=== PATIENT | female | born 1950 | race Caucasian/White ===

== ENCOUNTER 2016-09-18 07:55 | Outpatient (CLI) | payer MEDICARE | END 2016-09-18 07:56 | disposition home or self-care (01) | DX: E83.52 Hypercalcemia (principal); M85.80 Other specified disorders of bone density and structure, unspecified site ==

== ENCOUNTER 2018-07-16 09:45 | Outpatient (CLI) | payer MEDICARE ==
--- NOTE | 2018-07-19 09:03 | Mammography Report ---
Reason: SCREENING MAMMO Procedure Date: 07/16/2018 Accession Number: [id number] / [id number] Procedure: BLUE - Screening Mammo w/[place] CPT Code: FULL RESULT: EXAM: Screening Mammo w/[place] DATE: 07/16/2018 10:12 AM CLINICAL HISTORY: Screening encounter. No reported risk factors. TECHNIQUE: Bilateral CC and MLO views were obtained. COMPARISON: 04/21/2016 through 01/16/2012. FINDINGS: The breasts demonstrate scattered fibroglandular densities bilaterally. There are coarse typically benign calcifications, left greater than right. 4.6 cm from the nipple in the upper central left breast best seen on the left MLO view is a developing focal asymmetry questionably with calcifications which comment to focus on slice 40 of the 3-D images. While tomographic images suggest the overall 2-D finding is at least partially due to soft tissue overlap, spot magnification views are required to clarify the finding of calcifications. No suspicious masses, clustered microcalcifications, or regions of architectural distortion are identified in the right breast. IMPRESSION: Incomplete examination RECOMMENDATION: Additional evaluation with spot magnification views of the left upper central breast and possibly ultrasound as above. BIRADS CATEGORY 0: Incomplete examination STANDARD QUALIFYING STATEMENTS: 1. This examination was not reviewed with the aid of Computer-Aided Detection (CAD). 2. A negative or benign imaging report should not preclude biopsy if clinically suspicious findings are present. 3. Dense breasts may obscure an underlying neoplasm. 4. This examination was reviewed with the aid of 3D breast imaging (tomosynthesis).
== END 2018-07-16 09:46 | disposition home or self-care (01) ==
LOC: DI 09:45
PROVIDERS: ATTEND Registered Nurse
DX: Z12.31 Encounter for screening mammogram for malignant neoplasm of breast (principal); R92.1 Mammographic calcification found on diagnostic imaging of breast
CPT/HCPCS: 77063; 77067

== ENCOUNTER 2018-07-16 09:50 | Outpatient (CLI) | payer MEDICARE ==
--- NOTE | 2018-07-19 09:37 | DEXA Report ---
Reason: OSTEOPENIA Procedure Date: 07/16/2018 Accession Number: [id number] / [id number] Procedure: DEX - Dexa Spine and/or Hip CPT Code: FULL RESULT: EXAM: Dexa Spine and/or Hip DATE: 07/16/2018 10:32 AM CLINICAL HISTORY: OSTEOPENIA TECHNIQUE: Dual energy x-ray absorptiometry (DXA) was performed on a [employer] System. Regions measured are the AP Spine, femoral neck, and if needed forearm. COMPARISON: 04/21/2016. In accordance with the International Society for Clinical Densitometry (ISCD) guidelines, data from previous exams may be reanalyzed using current recommendations and techniques. This is done to allow a more accurate basis for comparison with the current study. FINDINGS: The data for the lumbar spine is as follows: BMD (g/cm/cm) T-SCORE Z-SCORE REGION L1 1.010 -1.0 0.7 L2 0.986 -1.8 -0.1 L3 1.023 -1.5 0.2 L4 1.081 -1.0 0.7 TOTAL 1.029 -1.3 0.4 NOTE: All evaluable vertebrae are used for classification The data for the hip is as follows: BMD (g/cm/cm) T-SCORE Z-SCORE REGION Neck 0.851 -1.3 0.4 TOTAL 1.000 -0.1 1.4 NOTE: The femoral neck or total proximal femur, whichever is lowest, is used for classification. DXA RESULTS SUMMARY: Spine SCAN DATE AGE BMD CHANGE VS CHANGE VS PREVIOUS PREVIOUS % [birth year][age]16/2018 [age] 1.029 0.021 2.1 04/21/2016 [age] 1.008 * Denotes significant change at the 95% confidence level. Denotes dissimilar scan types or analysis methods. DXA RESULTS SUMMARY: Hip SCAN DATE AGE BMD CHANGE VS CHANGE VS PREVIOUS PREVIOUS % 07[birth year]16/2018 68.2 1.000 -0.015 -1.5 04/21/2016 66.0 1.015 * Denotes significant change at the 95% confidence level. Denotes dissimilar scan types or analysis methods. IMPRESSION: THE WHO CLASSIFICATION BASED ON THE INTERNATIONAL REFERENCE STANDARD IS OSTEOPENIA. THE FRACTURE RISK IS INCREASED. RECOMMENDATION: Patients with diagnosis of osteoporosis or osteopenia should have regular bone mineral density assessment. For those eligible for Medicare, routine testing is allowed once every 2 years. Testing frequency can be increased for patients who have rapidly progressing disease or for those who are receiving medical therapy to restore bone mass. COMMENT: World Health Organization (WHO) definitions for osteoporosis and osteopenia: NORMAL BMD: T-score at -1.0 or higher, fracture risk is low OSTEOPENIA BMD: T-score between -1.0 and -2.5, fracture risk is increased. OSTEOPOROSIS BMD: T-score at -2.5 or lower, fracture risk is high. National Osteoporosis Foundation recommends: 1. Obtain adequate dietary calcium (at least 1200 mg per day) and vitamin D (400-800 international units per day). 2. Participate, as appropriate, in regular weightbearing and muscle-strengthening exercise. 3. Avoid tobacco use and reduce alcohol and caffeine intake. 4. For more detailed information see the website at www.NOF.org.
== END 2018-07-16 09:51 | disposition home or self-care (01) ==
LOC: DI 09:50
PROVIDERS: ATTEND Registered Nurse
DX: M85.89 Other specified disorders of bone density and structure, multiple sites (principal)
CPT/HCPCS: 77080

== ENCOUNTER 2018-08-16 09:42 | Outpatient (CLI) | payer MEDICARE ==
--- NOTE | 2018-08-16 12:16 | Mammography Report ---
Reason: ABN MAMMO - LT SPEC VIEWS Procedure Date: 08/16/2018 Accession Number: [id number] / [id number] Procedure: BLUE - Diag Special Views Dig LT CPT Code: FULL RESULT: EXAM: Diag Special Views Dig LT DATE: 08/16/2018 10:57 AM CLINICAL HISTORY: Diagnostic mammogram. The patient is recalled from screening for a left breast developing focal asymmetry possibly with subtle calcifications. TECHNIQUE: Left ML, MLO magnified and CC magnified views were obtained. Focused left breast ultrasound was performed. COMPARISON: 07/08/2018 through 01/16/2012. FINDINGS: The breasts demonstrate scattered fibroglandular densities bilaterally. The focal asymmetry is identified as a well-circumscribed isodense ovoid 1 cm nodule best seen on left ML 3-D slice 23 5.8 cm from the nipple. Focused breast ultrasound of the same region identifies a 1.0 x 0.3 x 0.9 cm focal widening of locally mildly prominent normal breast ducts and no solid soft tissue component or other concerning ultrasound features. IMPRESSION: Benign findings RECOMMENDATION: Recommend routine annual Screening mammography unless otherwise clinically indicated. BIRADS CATEGORY 2: Benign findings STANDARD QUALIFYING STATEMENTS: 1. This examination was not reviewed with the aid of Computer-Aided Detection (CAD). 2. A negative or benign imaging report should not delay biopsy if clinically suspicious findings are present. Consider surgical consultation if warrented. More than 5% of cancers are not identified by imaging. 3. Dense breasts may obscure an underlying neoplasm. 4. This examination was reviewed with the aid of 3D imaging (tomography).
== END 2018-08-16 09:43 | disposition home or self-care (01) ==
LOC: DI 09:42
PROVIDERS: ATTEND Registered Nurse
DX: R92.2 Inconclusive mammogram (principal)
CPT/HCPCS: 76642

== ENCOUNTER 2018-12-10 08:36 | Outpatient (CLI) | payer MEDICARE ==
--- NOTE | 2018-12-10 11:00 | XRAY Report ---
Reason: ARTHRITIS OF SHOULDER REGION JOINT Procedure Date: 12/10/2018 Accession Number: [id number] / [id number] Procedure: XR - Shoulder 3 View RT CPT Code: FULL RESULT: EXAM: RIGHT SHOULDER RADIOGRAPHY EXAM DATE: 12/10/2018 09:01 AM. CLINICAL HISTORY: Arthritis of shoulder region joint. COMPARISON: None. TECHNIQUE: 3 views. FINDINGS: Bones: Normal. No fracture or bone lesion. Joints: The acromioclavicular joint and glenohumeral joint are normally located with mild degenerative changes of the AC joint. Soft tissues: The visualized hemithorax is unremarkable. No soft tissue swelling. IMPRESSION: AC joint predominant degenerative changes. RADIA
== END 2018-12-10 08:37 | disposition home or self-care (01) ==
LOC: DI 08:36
PROVIDERS: ATTEND Registered Nurse
DX: M19.011 Primary osteoarthritis, right shoulder (principal)

== ENCOUNTER 2019-01-10 08:50 | Outpatient (CLI) | payer MEDICARE ==
--- NOTE | 2019-01-10 18:43 | MRI Report ---
Reason: PAIN IN RIGHT SHOULDER Procedure Date: 01/10/2019 Accession Number: [id number] / [id number] Procedure: MRI - Shoulder RT W/O CPT Code: FULL RESULT: EXAM: RIGHT SHOULDER MRI WITHOUT CONTRAST EXAM DATE: 01/10/2019 10:08 AM. CLINICAL HISTORY: Pain in right shoulder. COMPARISON: 09/06/2015 x-rays of the shoulder. TECHNIQUE: Multiplanar, multisequence T1-weighted and fluid-sensitive sequences of the shoulder without contrast. Other: None. FINDINGS: Acromioclavicular Region: The acromion is type II. AC joint is moderately osteoarthritic. Hypertrophic facets are seen. The coracoacromial and coracoclavicular ligaments are intact. Generous amount of bursal fluid is present. Glenohumeral Region: Superior subluxation of the humeral head with the bony glenoid is present. Moderate sized joint effusion. Some debris is seen in the joint. Series 501 image 23. Broad areas of grade III chondromalacia on both sides of the glenohumeral articulation. Small amount of subjacent cystic change seen at the bony glenoid. Series 501 image 19. Bone Marrow: No fracture, marrow edema or bone lesions. Labrum: The labrum is unremarkable on this nonarthrographic study. Musculature/Rotator Cuff: Full-thickness tear and proximal retraction of the supraspinatus and subscapularis portions of the rotator cuff. Partial-thickness tear of the superior 50% of the infraspinatus. Teres minor is normal. Substantial fatty atrophy of the supraspinatus and infraspinatus portions of the rotator cuff. Edematous changes without fatty atrophy at the subscapularis. Biceps Tendon: Long head of biceps tendon is torn and retracted distally. Other: The subcutaneous tissues are unremarkable. IMPRESSION: 1. Type II unipartite undersurface osseous acromion shape. AC joint is moderately osteoarthritic. Hypertrophic facets. Generous amount of bursal fluid is present. 2. Superior subluxation of the humeral head with respect to the bony glenoid, moderate sized joint effusion, debris also seen in the joint. Broad areas of grade III chondromalacia on both sides of the glenohumeral articulation. Small amount of subjacent cystic change at the bony glenoid, degenerative. 3. Full-thickness tear and proximal retraction of the supraspinatus and subscapularis portions of the rotator cuff, partial thickness tear superior 50% of the infraspinatus. Generous amount of fatty atrophy of the supraspinatus and infraspinatus portions of the rotator cuff, edematous changes without fatty atrophy at the subscapularis. 4. Long head of biceps tendon is torn and retracted distally. RADIA
== END 2019-01-10 08:51 | disposition home or self-care (01) ==
LOC: DI 08:50
PROVIDERS: ATTEND Registered Nurse
DX: M19.011 Primary osteoarthritis, right shoulder (principal); S43.001A Unspecified subluxation of right shoulder joint, initial encounter; M75.101 Unspecified rotator cuff tear or rupture of right shoulder, not specified as traumatic; S46.111A Strain of muscle, fascia and tendon of long head of biceps, right arm, initial encounter

== ENCOUNTER 2019-09-16 10:15 | Outpatient (CLI) | payer MEDICARE ==
--- NOTE | 2019-09-19 11:43 | Mammography Report ---
Reason: ROUTINE MAMMO Procedure Date: 09/16/2019 Accession Number: [id number] / [id number] Procedure: BLUE - Screening Mammo w/[place] CPT Code: Final Report FULL RESULT: EXAM: Screening Mammo w/[place] DATE: 09/16/2019 10:37 AM CLINICAL HISTORY: Screening encounter. TECHNIQUE: (B) - Bilateral CC and MLO views were obtained. COMPARISON: 08/08/2018 through 10/04/2010. PARENCHYMAL PATTERN: (A) - The breast(s) demonstrate(s) scattered fibroglandular densities. FINDINGS: There are no suspicious masses, calcifications, or areas of distortion. IMPRESSION: Negative examination. BI-RADS category 1. RECOMMENDATION: (ANNUAL) - Recommend routine annual screening mammography. BI-RADS CATEGORY: (1) - Negative. STANDARD QUALIFYING STATEMENTS: 1. This examination was not reviewed with the aid of Computer-Aided Detection (CAD). 2. A negative or benign imaging report should not preclude biopsy if clinically suspicious findings are present. 3. Dense breasts may obscure an underlying neoplasm. 4. This examination was reviewed with the aid of 3D breast imaging (tomosynthesis).
== END 2019-09-16 10:16 | disposition home or self-care (01) ==
LOC: DI 10:15
PROVIDERS: ATTEND Registered Nurse
DX: Z12.31 Encounter for screening mammogram for malignant neoplasm of breast (principal)
CPT/HCPCS: 77063; 77067

== ENCOUNTER 2020-05-04 09:38 | Day surgery (SDC) | payer MEDICARE ==
[2020-05-04] MEDS ORDERED: LACTATED RINGERS 1,000 ML IV ONE (10:11)
[2020-05-04] MEDS ORDERED: MIDAZOLAM 2 MG/2 ML VIAL IVP ONE (11:05)
[2020-05-04] MEDS ORDERED: fentaNYL 250 MCG/5 ML VIAL IVP ONE (11:05)
[2020-05-04] MEDS ORDERED: LACTATED RINGERS 500 ML IV ONE (11:48)
[2020-05-04 12:38] VITALS: BP 122/92
== END 2020-05-04 09:39 | disposition home or self-care (01) ==
LOC: SDS 09:38
PROVIDERS: ATTEND Surgery
DX: Z12.11 Encounter for screening for malignant neoplasm of colon (principal); Z80.0 Family history of malignant neoplasm of digestive organs; I10 Essential (primary) hypertension
CPT/HCPCS: G0105; J3010; J7120

== ENCOUNTER 2020-10-03 07:25 | Outpatient (CLI) | payer MEDICARE ==
--- NOTE | 2020-10-03 10:26 | Ultrasound Report ---
PROCEDURE: Abdomen Complete INDICATIONS: ABD PAIN TECHNIQUE: Real-time scanning was performed of the abdominal and retroperitoneal organs, with image documentatio n. COMPARISON: None. FINDINGS: Liver: Diffuse moderate hepatic steatosis. No focal hepatic mass. Gallbladder: Normally distended gallbladder. No gallbladder wall thickening. There is a mobile gallst one measuring 2.2 cm. No pericholecystic fluid. Biliary ducts: Intrahepatic bile ducts are non-dilated. Extrahepatic bile duct caliber measures 5 m m. Normal is 6-7 mm or less in diameter, or 10 mm or less post-cholecystectomy. Pancreas: Visualized portions of the pancreas are sonographically normal. Spleen: Spleen is normal in size and homogeneous in echotexture. Kidneys: Both kidneys normal in size and appearance. Aorta: Visualized aorta is normal in caliber at less than 3 cm. Iliacs: Proximal common iliac arteries are normal in caliber at less than 2.5 cm. IVC: Intrahepatic inferior vena cava is patent. Miscellaneous: No free abdominal fluid. IMPRESSION: Cholelithiasis and moderate hepatic steatosis. Reviewed by: Jeff Zimmerman MD on 10/03/2020 10:25 AM PDT Approved by: Jeff Zimmerman MD on 10/03/2020 10:25 AM PDT Station ID: [id number]
== END 2020-10-03 07:26 | disposition home or self-care (01) ==
LOC: DI 07:25
PROVIDERS: ATTEND Nurse Practitioner Family
DX: K80.20 Calculus of gallbladder without cholecystitis without obstruction (principal); K76.0 Fatty (change of) liver, not elsewhere classified

== ENCOUNTER 2020-10-26 14:07 | Outpatient (CLI) | payer MEDICARE | END 2020-10-26 14:08 | disposition home or self-care (01) | LOC: COV 14:07 | PROVIDERS: ATTEND Surgery | DX: Z01.812 Encounter for preprocedural laboratory examination (principal); K81.1 Chronic cholecystitis; Z20.822 Contact with and (suspected) exposure to COVID-19 ==

== ENCOUNTER 2020-10-30 08:27 | Day surgery (SDC) | payer MEDICARE ==
[~2020-10-30 08:27] MED LIST: BUPIVACAINE 0.25% PF 30 ML VIAL ONE
[2020-10-30] MEDS ORDERED: PROPOFOL 200 MG/20 ML VIAL IVP ONE (08:30)
[2020-10-30] MEDS ORDERED: MIDAZOLAM 2 MG/2 ML VIAL ONE (08:30)
[2020-10-30] MEDS ORDERED: ONDANSETRON 4 MG/2 ML VIAL ONE (08:30)
[2020-10-30] MEDS ORDERED: DEXAMETHASONE 4 MG/ML VIAL ONE (08:30)
[2020-10-30] MEDS ORDERED: ROCURONIUM 50 MG/5 ML VIAL ONE (08:30)
[2020-10-30] MEDS ORDERED: LIDOCAINE-MPF 2% 5 ML VIAL ONE (08:30)
[2020-10-30] MEDS ORDERED: fentaNYL 100 MCG/2 ML VIAL ONE ×2 (08:30→10:07)
[2020-10-30] MEDS ORDERED: ceFAZolin 2 GM/50 ML 2 GM/50 ML BAG IV ONE (08:31)
[2020-10-30] MEDS ORDERED: LACTATED RINGERS 1,000 ML IV ONE (09:00)
[2020-10-30] MEDS ORDERED: METOCLOPRAMIDE 10 MG/2 ML VIAL IVP PRN (09:27)
[2020-10-30] MEDS ORDERED: MORPHINE 2 MG/ML CARPUJECT IVP PRN (09:27)
[2020-10-30] MEDS ORDERED: HYDROmorphone 0.5 MG/0.5 ML SYRINGE IVP PRN (09:27)
[2020-10-30] MEDS ORDERED: ONDANSETRON 4 MG/2 ML VIAL IVP PRN ×2 (09:27→10:58)
[2020-10-30] MEDS ORDERED: ATROPINE ABBOJECT 1 MG/10 ML SYRINGE IVP PRN (09:27)
[2020-10-30] MEDS ORDERED: NALOXONE 0.4 MG/ML VIAL IVP PRN (09:27)
[2020-10-30] MEDS ORDERED: ePHEDrine 50 MG/ML VIAL IVP PRN (09:27)
[2020-10-30] MEDS ORDERED: fentaNYL 100 MCG/2 ML VIAL IVP PRN (09:27)
--- NOTE | 2020-10-30 09:27 | ANESTHESIA ---
Pre-Anesthesia VS, & Labs - Diagnosis cholecystitis, cholelithiasis - Procedure laparoscopic cholecystectomy Vital Signs: Temp Pulse Resp BP Pulse Ox 36.3 C L 73 16 133/88 H 97 10/30/20 08:39 10/30/20 08:39 10/30/20 08:39 10/30/20 08:39 10/30/20 08:39 Height: 4 ft 11 in Weight (kg): 60.8 kg Body Mass Index: 27.1 BMI Classification: Overweight - NPO >8 hours - Is Patient ?: No Home Medications and Allergies Home Medications: Ambulatory Orders Acetaminophen [Tylenol] 650 mg PO Q6H PRN 10/24/20 Calcium Carbonate/Vitamin D3 [Calcium 600-Vit D3 200 Tablet] 1 each PO DAILY 10/24/20 Esomeprazole Magnesium [Nexium] 20 mg PO DAILY 10/24/20 Multivitamin [Daily-Naresh] 1 each PO DAILY 10/24/20 amLODIPine [Norvasc] 2.5 mg ORAL DAILY 05/04/20 Acetaminophen [Tylenol] 650 mg PO Q6H PRN 10/24/20 Calcium Carbonate/Vitamin D3 [Calcium 600-Vit D3 200 Tablet] 1 each PO DAILY 10/24/20 Esomeprazole Magnesium [Nexium] 20 mg PO DAILY 10/24/20 Multivitamin [Daily-Naresh] 1 each PO DAILY 10/24/20 Allergies/Adverse Reactions: Allergies Allergy/AdvReac Type Severity Reaction Status Date / Time Iodine and Iodide Containing Allergy Anaphylaxis Verified 10/24/20 11:17 Produc Sulfa (Sulfonamide Allergy anxious Verified 10/24/20 11:17 Antibiotics) Anes History & Medical History - Anesthetic History Anesthesia Complications: reports: No previous complications - Medical History Cardiovascular: reports: Hypertension Pulmonary: reports: None Gastrointestinal: reports: GERD, Diverticulitis Urinary: reports: None Musculoskeletal: reports: Osteoarthritis, Chronic back pain, Other Endocrine/Autoimmune: reports: None Skin: reports: None - Surgical History General: reports: Colonoscopy Gynecologic: reports: Hysterectomy, Other Orthopedic: reports: Spine surgery, Other Exam General: Alert, Oriented x3 Dental: WNL Mouth Opening: Greater than 4 Fingerbreadths Neck Mobility: Normal Mallampati classification: II Thyromental Distance: greater than 6 cm Respiratory: Lungs clear Cardiovascular: Regular rate, Normal S1, Normal S2 Plan Anesthesia Type: General Consent for Procedure(s) Verified and Reviewed: Yes Code Status: Attempt Resuscitation ASA classification: 2-Mild systemic disease Is this case an emergency?: No
[2020-10-30] MEDS ORDERED: ePHEDrine 50 MG/ML VIAL IVP ONE (09:41)
[2020-10-30] MEDS ORDERED: PHENYLEPHRINE 10 MG/ML VIAL ONE (09:44)
[2020-10-30] MEDS ORDERED: LACTATED RINGERS 1,000 ML IV SCH (10:00)
[2020-10-30] MEDS ORDERED: BUPIVACAINE 0.25% PF 30 ML VIAL SUBQ ONE ×2 (10:15→10:30)
[2020-10-30] MEDS ORDERED: SUGAMMADEX 200 MG/2 ML VIAL IVP ONE (10:30)
[2020-10-30] MEDS ORDERED: LACTATED RINGERS 800 ML IV ONE (10:52)
[2020-10-30] MEDS ORDERED: HYDROcod/ACETAM 5/325 MG TABLET PO PRN (10:58)
--- NOTE | 2020-10-30 10:58 | OPERATIVE REPORT ---
Operative Report - General Procedure Date: 10/30/20 Planned Procedure: lap dany Pre-Op Diagnosis: chronic cholecystitis Procedure Performed: lap dany Post Op Diagnosis: same - Procedure Note Primary Surgeon: ben aquino md Anesthesia Technique: General ET tube, Local Pathology: gb Estimated Blood Loss (mL): 10 Drain/Tube Type: Other (none) Findings: healthy liver. large stone. small cystic duct Complications: none
--- NOTE | 2020-10-30 11:10 | ANESTHESIA POST OP EVALUATION ---
Anesthesia Post Eval - Post Anesthesia Eval Vitals: Last Vital Signs Temp 36.2 C L 10/30/20 11:05 Pulse 75 10/30/20 11:05 Resp 16 10/30/20 11:05 BP 135/78 H 10/30/20 11:05 Pulse Ox 97 10/30/20 11:05 CV Function Including HR & BP: Stable Pain Control: Satisfactory Nausea & Vomiting: Negative Mental Status: Baseline Respiratory Status: Airway Patent Hydration Status: Satisfactory Anesthesia Complications: None
[2020-10-30] MEDS: HYDROmorphone 1 MG/ML CARPUJECT ONE ×2 (11:15→11:23)
--- NOTE | 2020-10-30 11:35 | OPERATIVE REPORT ---
DATE OF SERVICE: 10/30/2020 Physician: Leonidas Hayes MD PREOPERATIVE DIAGNOSIS: Chronic cholecystitis. POSTOPERATIVE DIAGNOSIS: Chronic cholecystitis. PROCEDURE: Laparoscopic cholecystectomy. SURGEON: Leonidas Hayes MD. POUND ATTENDANT: None. ANESTHESIA: 1. General endotracheal anesthesia. 2. Local anesthesia with Marcaine. COMPLICATIONS: None. SPECIMEN: Gallbladder. ESTIMATED BLOOD LOSS: 10 mL or less. DRAINS: None. FINDINGS: 1. Healthy-appearing liver. 2. Obstructed gallbladder with a large gallstone at the fundus. 3. Very short narrow cystic duct. 4. Common hepatic and common bile duct were easily evident without dissection. INDICATIONS FOR PROCEDURE: The patient is a healthy, active 70-year-old with classic chronic cholecy stitis symptoms. She has a single 2 cm gallstone. She presents for laparoscopic cholecystectomy. R isks discussed, alternatives discussed, all questions answered, and consent obtained. DETAILS OF THE PROCEDURE: The patient was properly identified, brought to the operating room, and pl aced in supine position. She voided prior to surgery. General endotracheal anesthesia was induced. Sequential compression devices were placed. She was prepped and draped in a sterile fashion and giv en preoperative antibiotics. Local anesthetic was given to incision areas. An incision was made chiki roximately 4 cm cephalad and 4 cm right lateral of her umbilicus. Dissection proceeded down to the f ascia. The fascia was incised, lifted upwards, and abdomen entered with the Veress needle. CO2 was insufflated to a pressure of 15. An 11 mm trocar with 30-degree scope was placed under vision. Ther e was no evidence of injury from Veress needle or trocar placement. Under direct vision, two 5 mm tr ocars were placed in the right upper quadrant, and an 11 mm trocar was placed in the epigastrium. Om ental adhesions were taken down from the underside of the right lobe of the liver. The gallbladder w as retracted anterior. Lateral attachments were partially taken down, further mobilizing the gallbla dder more away from the common hepatic duct, which was easily seen. The infundibulum was released fr om its peritoneal-type attachments and retracted right lateral and caudad. With minimal use of caute ry, a large bare cystic plate area and window were carefully created. The cystic duct was clipped at the gallbladder and 3 times more proximal and sharply divided. The cystic duct was clipped at the g allbladder and twice more proximal and sharply divided. A small arterial towards the fundus of the g allbladder coming off from the liver was divided with cautery and then clipped. The gallbladder was removed through the epigastric trocar site without spillage of bile or stone material. Clips were se cured. Hemostasis was assured. Fascia at the periumbilical and epigastric incision area was closed with a [id number] 0 Vicryl. Trocars were removed under direct vision and CO2 evacuated. Skin w as closed with buried interrupted and running 4-0 Monocryl. Dressings were applied. She tolerated t he procedure very well. TD: 10/30/2020 11:33
[2020-10-30 11:52] VITALS: BP 119/70
== END 2020-10-30 08:28 | disposition home or self-care (01) ==
LOC: SDS 08:27
PROVIDERS: ATTEND Surgery
PROC: 0FT44ZZ Resection of Gallbladder, Percutaneous Endoscopic Approach (ICD-10-PCS; principal; 2020-10-30 09:30)
DX: K80.11 Calculus of gallbladder with chronic cholecystitis with obstruction (principal); E66.3 Overweight; Z68.27 Body mass index [BMI] 27.0-27.9, adult; I10 Essential (primary) hypertension; K21.9 Gastro-esophageal reflux disease without esophagitis; Z80.0 Family history of malignant neoplasm of digestive organs
CPT/HCPCS: 47562; J0690; J1170; J7120

== ENCOUNTER 2021-07-31 10:38 | Outpatient (CLI) | payer MEDICARE ==
--- NOTE | 2021-07-31 12:57 | DEXA Report ---
PROCEDURE: Dexa Spine and/or Hip INDICATIONS: OSTEOPENIA TECHNIQUE: Dual energy x-ray absorptiometry (DXA) was performed on a [employer] System. Regions measur ed are the AP Spine, femoral neck, and if needed forearm. COMPARISON: Prior studies dating back to April 21, 2016 FINDINGS: Lumbar Spine: Bone Mineral Density 1.034 g/cm/cm,T score -1.2, osteopenia Left Femoral Neck: Bone Mineral Density 0.8 g/cm/cm, T score -1.7, osteopenia. Total: Bone mineral density 0.951 g/cm/cm, T score -0.4, normal. (T score greater or equal to -1.0: NORMAL) (T score from -1.1 to -2.4: OSTEOPENIA) (T score less than or equal to -2.5 to: OSTEOPOROSIS) Impression: Bone mineral density as detailed above. Patients with diagnosis of osteoporosis or osteopenia should have regular bone mineral density assess ment. For those eligible for Medicare, routine testing is allowed once every 2 years. Testing frequ ency can be increased for patients who have rapidly progressing disease or for those who are receivin g medical therapy to restore bone mass. Reviewed by: Josafat Rodríguez MD on 07/31/2021 12:56 PM PST Approved by: Jsoafat Rodríguez MD on 07/31/2021 12:56 PM PST Station ID: [id number]
== END 2021-07-31 10:39 | disposition home or self-care (01) ==
LOC: DI 10:38
PROVIDERS: ATTEND Registered Nurse
DX: M85.89 Other specified disorders of bone density and structure, multiple sites (principal)

== ENCOUNTER 2021-08-21 08:47 | Outpatient (CLI) | payer MEDICARE ==
--- NOTE | 2021-08-22 08:41 | Mammography Report ---
BILATERAL DIGITAL SCREENING MAMMOGRAM 3D/2D: 08/21/2021 CLINICAL: Routine screening. Comparison is made to exams dated: 09/16/2019 mammogram, 08/16/2018 mammogram, 07/16/2018 mammogram, 1 mammogram, and 10/05/2014 mammogram - [facility]. There are scattered fibr oglandular elements in both breasts. No significant masses, calcifications, or other findings are seen in either breast. There has been no significant interval change. IMPRESSION: NEGATIVE There is no mammographic evidence of malignancy. A 1 year screening mammogram is recommended. This exam was interpreted at Station ID: [id number]. NOTE: For mammograms, a report in lay terms will be sent to the patient. Approximately 15% of breast malignancies will not be visualized mammographically. In the management of a palpable breast mass, a negative mammogram must not discourage biopsy of a clinically suspicious lesion. Electronically Signed By: Andrei Griffin M.D. aty/estrellitarad:08/21/2021 17:03:42 ACR BI-RADS Category 1: Negative 3341F PARENCHYMAL PATTERN: (A) - The breast(s) demonstrate(s) scattered fibroglandular densities. BI-RADS CATEGORY: (1) - 1 RECOMMENDATION: (ANNUAL) - Recommend routine annual screening mammography. [id number] 1 year screening LATERALITY: (B)
== END 2021-08-21 08:48 | disposition home or self-care (01) ==
LOC: DI.S 08:47
PROVIDERS: ATTEND Registered Nurse
DX: Z12.31 Encounter for screening mammogram for malignant neoplasm of breast (principal)

== ENCOUNTER 2023-03-11 07:56 | Outpatient (CLI) | payer MEDICARE ==
--- NOTE | 2023-03-11 12:07 | CT Report ---
PROCEDURE: CHEST WO INDICATIONS: CHRONIC COUGH TECHNIQUE: Noncontrast 1mm axial images were acquired from the pulmonary apices to the posterior costophrenic an gles. Axial 5 mm soft tissue kernel reconstructions were performed as well as 8 mm axial MIP and cor onal and sagittal 5 mm reformations. For radiation dose reduction, the following was used: automate d exposure control, adjustment of mA and/or kV according to patient size. COMPARISON: None FINDINGS: Image quality: Excellent. Lungs and pleura: Central and peripheral airways are normal caliber without bronchial wall thickening or bronchiectasis. No pleural effusions. No pneumothorax. There is a smoothly marginated circumscri bed solid nodule in the anterior right upper lobe at a midlung level measuring 1.0 x 0.9 cm. There ar e no other nodules, masses, groundglass opacities or consolidations. Mediastinum: Heart size is normal. No pericardial effusion. 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 Minor arch calcification. The descending aorta is tortu ous and normal caliber.. There is a large type for paraesophageal hernia encompassing the majority of the stomach. There are several shotty mediastinal lymph nodes. A precarinal node measures 1.1 cm. No hilar adenopathy. Chest wall and lower neck: Thyroid is unremarkable. No axillary or supraclavicular adenopathy by size . Bones: Endplate osteophytosis throughout the thoracic spine. There is superior endplate scalloping of L1. No suspicious bone lesions. Upper Abdomen: Surgical changes of cholecystectomy. Nonobstructing right lower pole intrarenal calcul us. No suspicious soft tissue mass. IMPRESSION: 1. Large, stomach containing paraesophageal hernia may predispose to gastroesophageal reflux and caus e chronic cough. 2. No significant pulmonary parenchymal abnormality to suggest cause of cough. 3. Incidental 1.0 cm solid right upper lobe lung nodule. Differential diagnosis includes both benign and malignant etiologies. Comparison to any prior exams is recommended to document stability. In the absence of these, PET/CT is recommended. Reviewed by: Cristina Alvarado MD on 03/11/2023 12:05 PM PDT Approved by: Cristina Alvarado MD on 03/11/2023 12:05 PM PDT Station ID: [id number]
== END 2023-03-11 07:57 | disposition home or self-care (01) ==
LOC: DI 07:56
PROVIDERS: ATTEND Registered Nurse
DX: R05.3 Chronic cough (principal); K44.9 Diaphragmatic hernia without obstruction or gangrene

== ENCOUNTER 2024-04-13 10:20 | Outpatient (CLI) | payer MEDICARE ==
--- NOTE | 2024-04-13 17:01 | XRAY Report ---
PROCEDURE: Cervical Spine 2-3V INDICATIONS: BILATERAL SHOULDER PAIN TECHNIQUE: 3 views of the cervical spine were acquired. COMPARISON: None. FINDINGS: Bones: No acute fractures or dislocations to the T1 level. The lateral masses of C1 appear intact o n the odontoid view. No suspicious bony lesions. Multilevel disc space narrowing and degenerative e ndplate changes. Multilevel uncovertebral joint and facet hypertrophy. Soft tissues: No prevertebral soft tissue swelling. IMPRESSION: No acute displaced fracture or traumatic subluxation. Moderate to severe multilevel cervical spondylo sis. Reviewed by: Yuriy Mlaave MD on 04/13/2024 5:00 PM PDT Approved by: Yuriy Malave MD on 04/13/2024 5:00 PM PDT Station ID: [id number]
--- NOTE | 2024-04-13 17:03 | XRAY Report ---
PROCEDURE: Shoulder 2+V BL INDICATIONS: BILATERAL SHOULDER PAIN TECHNIQUE: 3 views of the shoulder were acquired. COMPARISON: None. FINDINGS: Bones: No acute fractures or dislocations. No suspicious bony lesions. Visualized ribs appear inta ct. Full-thickness joint space narrowing in the glenoid humeral joints bilaterally. The right humeral head is high riding and abuts the undersurface of the acromion with chronic degenerative changes. Mi ld to moderate bilateral acromioclavicular osteoarthrosis. Soft tissues: No suspicious soft tissue calcifications. The visualized lungs are within normal limi ts. IMPRESSION: 1.Severe bilateral glenohumeral osteoarthrosis. 2.High riding right humeral head abuts the undersurface of the acromion with associated degenerative changes, consistent with underlying full-thickness rotator cuff tendon tearing. 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 Reviewed by: Yuriy Malave MD on 04/13/2024 5:02 PM PDT Approved by: Yuriy Malave MD on 04/13/2024 5:02 PM PDT Station ID: [id number]
== END 2024-04-13 10:21 | disposition home or self-care (01) ==
LOC: DI 10:20
PROVIDERS: ATTEND Registered Nurse
DX: M19.011 Primary osteoarthritis, right shoulder (principal); M19.012 Primary osteoarthritis, left shoulder; M47.812 Spondylosis without myelopathy or radiculopathy, cervical region